=== PATIENT | female | born 1940 | race Caucasian/White ===

== ENCOUNTER 2017-05-05 19:14 | Emergency (ER) | payer MEDICAID ==
[~2017-05-05] VITALS: Ht 162.6 cm; Wt 72.6 kg
[2017-05-05 19:53] VITALS: BP_SYST 147
[2017-05-05] MEDS ORDERED: ASPI-1063 PO (19:56)
[2017-05-05 20:33] LABS: BILIRUBIN,URINE NEGATIVE (NEGATIVE); BLOOD, URINE NEGATIVE (NEGATIVE); COLOR,URINE YELLOW (YELLOW); GLUCOSE,URINE TRACE (NEGATIVE); KETONES,URINE NEGATIVE (NEGATIVE); LEUKOCYTE ESTERASE ,URINE NEGATIVE (NEGATIVE); NITRITE, URINE NEGATIVE (NEGATIVE); PROTEIN URINE NEGATIVE (NEGATIVE)
[2017-05-05 20:40] LABS: CLARITY/URINE SLIGHTLY HAZY (CLEAR)
[2017-05-05 20:52] LABS: BACTERIA,URINE FEW /HPF (None Seen); MUCUS,URINE 1+ /LPF (None Seen); RBC,URINE 0-3 /HPF (0-3)
[2017-05-05] MEDS ORDERED: KETOROLAC TROMETHAMINE 60 MG/2 ML VIAL IM ONE (21:00)
[2017-05-05 21:17] VITALS: BP_SYST 142
== END 2017-05-05 21:17 | disposition home or self-care (01) ==
LOC: SED 19:14
DX: M54.5 Low back pain (principal); R11.2 Nausea with vomiting, unspecified; M79.1 Myalgia; E11.9 Type 2 diabetes mellitus without complications
CPT/HCPCS: 81000; 82962; 96372; 99283; J1885